=== PATIENT | female | born 1985 | race African-American/Black ===

== ENCOUNTER 2017-09-01 22:38 | Emergency (ER) | payer MEDICAID ==
[2017-09-01] MEDS ORDERED: BENZONATATE 100 MG CAPSULE PO STA (22:53)
[2017-09-01] MEDS ORDERED: guaiFENesin/CODEINE 5 ML UDC PO STA (22:53)
[2017-09-01] MEDS ORDERED: ALBUTEROL NEB 2.5 MG/3 ML INH STA (22:53)
[2017-09-01] MEDS ORDERED: DEXAMETHASONE 10 MG/ML VIAL PO STA (22:53)
--- NOTE | 2017-09-01 22:54 | ED Physician Documentation ---
PD HPI URI - Stated complaint Stated Complaint: COUGH - History obtained from History obtained from: Patient - History of Present Illness Timing - onset: How many days ago (few days of worse cough and sputum, wheezing , malaise. Has had URI symptoms about 2 weeks and seemed to be improving prior to that.) Timing duration: Days Timing details: Gradual onset, Still present Associated symptoms: Fever, Productive cough, Dyspnea Contributing factors: No: Sick contact Similar symptoms before: Has not had sx before Recently seen: Not recently seen Review of Systems Constitutional: reports: Fever Cardiac: reports: Chest pain / pressure (with coughing) Respiratory: reports: Dyspnea, Cough, Wheezing GI: denies: Nausea, Vomiting, Diarrhea Skin: denies: Rash PD PAST MEDICAL HISTORY - Past Medical History Cardiovascular: Hypertension - Past Surgical History Past Surgical History: Yes Ortho: Other /[employer]: section, Tubal ligation, LEEP (Cervical surgery) - Present Medications Home Medications: Ambulatory Orders Medication Instructions Recorded Confirmed Hydrocodone/Acetaminophen [Vicodin 1 each PO DAILY 02/22/16 02/22/16 5-300 mg Tablet] Metoprolol Tartrate 25 mg PO DAILY #30 tablet 02/22/16 traMADol [Ultram] 50 mg PO ONCE 02/22/16 02/22/16 Albuterol Sulf [Ventolin Hfa 1 - 2 puffs INH Q4HR PRN #1 inhaler 09/01/17 Inhaler] Azithromycin [Zithromax] 250 mg PO DAILY #4 tablet 09/01/17 Benzonatate [Tessalon] 100 mg PO TID PRN #25 capsule 09/01/17 Dexamethasone [Decadron] 4 mg PO DAILY #5 tablet 09/01/17 guaiFENesin/CODEINE [Robitussin AC] 10 ml PO Q6H PRN #240 ml 09/01/17 - Allergies Allergies/Adverse Reactions: Allergies Allergy/AdvReac Type Severity Reaction Status Date / Time fluticasone propionate * AdvReac Edema Verified 09/20/15 10:46 [From Flonase] - Social History Does the pt smoke?: No Smoking Status: Never smoker Does the pt drink ETOH?: No Does the pt have substance abuse?: No - Immunizations Immunizations are current?: Yes PD ED PE NORMAL - Vitals Vital signs reviewed: Yes - General General: Alert and oriented X 3, No acute distress, Well developed/nourished - HEENT HEENT: Ears normal, Pharynx benign - Neck Neck: Supple, no meningeal sign, No adenopathy - Cardiac Cardiac: RRR, No murmur - Respiratory Respiratory: No respiratory distress. No: Clear bilaterally (wheezing noted diffusely. no coarse sounds. ) - Abdomen Abdomen: Soft, Non tender - Derm Derm: Normal color, Warm and dry - Extremities Extremities: No tenderness to palpate, Normal ROM s pain, No edema, No calf tenderness / cord - Neuro Neuro: Alert and oriented X 3, No motor deficit, Normal speech Results - Vitals Vitals: Oxygen O2 Source Room air PD MEDICAL DECISION MAKING - ED course Complexity details: considered differential (had URI symptoms and now purulent cough and fever, sounding like secondary bronchitis. ), d/w patient Departure - Departure Disposition: 01 Home, Self Care Clinical Impression: Bronchitis, acute Qualifiers: Bronchitis organism: unspecified organism Qualified Code(s): J20.9 - Acute bronchitis, unspecified High blood pressure Qualifiers: Hypertension type: unspecified Qualified Code(s): I10 - Essential (primary) hypertension Condition: Stable Record reviewed to determine appropriate education?: Yes Instructions: ED Upper Resp Infec Abx Tx Prescriptions: Albuterol Sulf [Ventolin Hfa Inhaler] 1 - 2 puffs INH Q4HR PRN #1 inhaler PRN Reason: Shortness Of Air/Wheezing Azithromycin [Zithromax] 250 mg PO DAILY #4 tablet Benzonatate [Tessalon] 100 mg PO TID PRN #25 capsule PRN Reason: Cough Dexamethasone [Decadron] 4 mg PO DAILY #5 tablet guaiFENesin/CODEINE [Robitussin AC] 10 ml PO Q6H PRN #240 ml PRN Reason: Cough Comments: Drink lots of fluids. This does sound likely to be a bacterial infection subsequent to the cold that you have had for the couple of weeks. We will treated with antibiotics, steroid anti-inflammatory, albuterol inhaler, Tessalon for cough. Recheck if not improving over the next 4 5 days. Discharge Date/Time: 09/01/17 23:40
[2017-09-01] MEDS ORDERED: AZITHROMYCIN 250 MG TABLET PO STA (23:24)
[2017-09-01 23:39] VITALS: BP 184/116
== END 2017-09-01 23:40 | disposition home or self-care (01) ==
LOC: ED 22:38
DX: J20.9 Acute bronchitis, unspecified (principal); I10 Essential (primary) hypertension
CPT/HCPCS: 94640; 99283; A9270